=== PATIENT | male | born 1955 | race African-American/Black ===

== ENCOUNTER 2017-02-27 02:54 | Observation (INO) | payer OTHER ==
[2017-02-27 03:29] VITALS: BMI 24.0
--- NOTE | 2017-02-27 03:30 | PDOC ---
History of Present Illness - General History Source: Patient Exam Limitations: No Limitations - History of Present Illness Initial Comments: 02/27/17 03:52 The patient is a 61 year old male, with a significant past medical history of HTN, DM, HLD, BPH, who presents to the emergency department with, R sided neck pain and chest pain today. Patient states his neck pain, 7/10 in severity began 3 days ago, stabbing and pressure like in nature and radiates to his shoulder. The patient describes his chest pain as pressure like, 7/10 in severity associated with SOB. Patient states his chest pain woke him up and presents to the ED for further evaluation. Patient denies recent travel, recent sick contacts or illnesses. He denies headache or dizziness. He denies fever, chills, abdominal pain, nausea , vomit, diarrhea or constipation. He denies dysuria, frequency, urgency or hematuria. Allergies:NKA Past surgical history: Cardiac stent placement Social history:Former smoker (quit 4 years ago) PCP: Dr. Wei Simpson <Maryellen Griggs - Last Filed: 02/27/17 06:51> - General History Source: Patient <JustynDillan arredondo - Last Filed: 02/27/17 19:50> - General Chief Complaint: Chest Pain Stated Complaint: LFT SIDE NECK AND FACE PAIN Time Seen by Provider: 02/27/17 03:26 Past History <Maryellen Griggs - Last Filed: 02/27/17 06:51> - Past Medical History Cardiac Disorders: Yes (PALPITATIONS,CAD) CVA: Yes (mini stroke, no residual) Diabetes: Yes (IDDM) HTN: Yes Hypercholesterolemia: Yes - Surgical History Cardiac Surgery: Yes (cardiac cath 2013, NO STENT) - Immunization History Immunization Up to Date: Yes (2011) - Psycho/Social/Smoking Cessation Hx Anxiety: No Suicidal Ideation: No Smoking Status: Yes Smoking History: Current every day smoker Have you smoked in the past 12 months: No Number of Cigarettes Smoked Daily: 0 If you are a former smoker, when did you quit?: 2012 'Breaking Loose' booklet given: 08/13/12 Hx Alcohol Use: No Drug/Substance Use Hx: No Substance Use Type: None Hx Substance Use Treatment: No <Dillan Carmona - Last Filed: 02/27/17 19:50> - Past Medical History Allergies/Adverse Reactions: Allergies Allergy/AdvReac Type Severity Reaction Status Date / Time No Known Allergies Allergy Verified 05/18/15 10:08 Home Medications: Ambulatory Orders Aspirin [ASA -] 81 mg PO DAILY 02/27/17 Insulin Glargine,Hum.rec.anlog [Lantus (nf)] 20 units SQ HS 02/27/17 Lisinopril [Prinivil] 20 mg PO DAILY 02/27/17 Metoprolol Tartrate 25 mg PO DAILY 02/27/17 Sitagliptin Phos/Metformin HCl [Janumet 50-1,000 mg Tablet] 1,000 mg PO BID 09/14 Tamsulosin HCl [Flomax] 0.4 mg PO DAILY 02/27/17 Review of Systems - Review of Systems Able to Perform ROS?: Yes Comments:: 02/27/17 03:52 GENERAL/CONSTITUTIONAL: No fever or chills. No weakness. HEAD, EYES, EARS, NOSE AND THROAT: No change in vision. No ear pain or discharge. No sore throat. CARDIOVASCULAR: + chest pain, shortness of breath. RESPIRATORY: No cough, wheezing, or hemoptysis. GASTROINTESTINAL: No nausea, vomiting, diarrhea or constipation. GENITOURINARY: No dysuria, frequency, or change in urination. MUSCULOSKELETAL: +neck and shoulder pain. No joint or muscle swelling or pain. No back pain. SKIN: No rash NEUROLOGIC: No headache, vertigo, loss of consciousness, or change in strength/ sensation. ENDOCRINE: No increased thirst. No abnormal weight change. HEMATOLOGIC/LYMPHATIC: No anemia, easy bleeding, or history of blood clots. ALLERGIC/IMMUNOLOGIC: No hives or skin allergy. <Maryellen Griggs - Last Filed: 02/27/17 06:51> *Physical Exam - Vital Signs Last Vital Signs Temp Pulse Resp BP Pulse Ox 98.0 F 68 18 137/99 99 02/27/17 03:26 02/27/17 03:26 02/27/17 03:26 02/27/17 03:26 02/27/17 03:26 - Physical Exam Comments: 02/27/17 03:52 GENERAL: Awake, alert, and fully oriented, in + moderate distress. HEAD: No signs of trauma EYES: PERRLA, EOMI, sclera anicteric, conjunctiva clear ENT: Auricles normal inspection, hearing grossly normal, nares patent, oropharynx clear without exudates. Moist mucosa NECK: Normal ROM, supple, no lymphadenopathy, JVD, or masses LUNGS: Breath sounds equal, clear to auscultation bilaterally. No wheezes, and no crackles HEART: Regular rate and rhythm, normal S1 and S2, no murmurs, rubs or gallops ABDOMEN: Soft, nontender, normoactive bowel sounds. No guarding, no rebound. No masses EXTREMITIES: Normal range of motion, no edema. No clubbing or cyanosis. No cords, erythema, or tenderness NEUROLOGICAL: Cranial nerves II through XII grossly intact. Normal speech, normal gait SKIN: Warm, Dry, normal turgor, no rashes or lesions noted. <Maryellen Griggs - Last Filed: 02/27/17 06:51> Heart Score/ECG Review #1 02/27/17 04:[address] Kristine Bonilla. rate 70 bpm NSR Anterior infarct, age undetermined Abdonrmal ECG [place] Interval 182 ms QRS Duration 84 ms QT/QTc 352/380 ms P-R-T axes 57 42 34 <Maryellen Griggs - Last Filed: 02/27/17 06:51> ED Treatment Course - LABORATORY CBC & Chemistry Diagram: 02/27/17 03:37 02/27/17 03:37 <Maryellen Griggs - Last Filed: 02/27/17 06:51> - LABORATORY CBC & Chemistry Diagram: 02/27/17 03:37 02/27/17 03:37 <Dillan Carmona - Last Filed: 02/27/17 19:50> Medical Decision Making - Medical Decision Making 02/27/17 06:[address] Stacy via phone answering service. 02/27/17 06:[address] Stacy via phone answering service 02/27/17 06:[address] Stacy via phone answering service. 02/27/17 06:51 Patient's case was discussed. <Maryellen Griggs - Last Filed: 02/27/17 06:51> - Medical Decision Making 02/27/17 19:50 Dr. Carmona: The scribe's documentation has been prepared under my direction and personally reviewed by me in its entirery. I confirm that the note above accurately reflects all work, treatment, procedures, and medical decision making performed by me. <Dillan Carmona - Last Filed: 02/27/17 19:50> *DC/Admit/Observation/Transfer - Attestations Scribe Attestion: 02/27/17 03:52 Documentation prepared by Maryellen Griggs, acting as medical office assistant for Dillan Carmona DO. <Maryellen Griggs - Last Filed: 02/27/17 06:51> - Discharge Dispostion Admit: Yes <Dillan Carmona - Last Filed: 02/27/17 19:50> Diagnosis at time of Disposition: Coronary artery disease, Chest pain - Referrals
[2017-02-27] MEDS ORDERED: ASPIRIN 81 MG CHEWABLE TABLETS PO ONE (03:38)
[2017-02-27] MEDS ORDERED: morphine CARPU-JECT 2 MG/1 ML DISP.SYRIN IVPUSH ONE (03:38)
[2017-02-27] MEDS ORDERED: NITROGLYCERIN 2% OINTMENT - 1GM PACKET TD ONE ×2 (03:38→03:58)
[2017-02-27] MEDS ORDERED: morphine CARPU-JECT 4 MG/1 ML DISP.SYRIN ONE (03:53)
[2017-02-27] MEDS ORDERED: ASPIRIN 81 MG CHEWABLE TABLETS ONE (03:58)
[2017-02-27 04:03] LABS: MCHC 32.4 g/dl (32.0-35.9); MEAN CELL VOLUME 86.5 fl (80-96); MEAN PLT VOLUME 7.5 fl (7.5-11.1); PLATELET COUNT 211 K/MM3 (134-434); RDW 14.9 % (11.9-15.9); WHITE BLOOD COUNT 5.3 K/mm3 (4.0-10.0)
[2017-02-27 04:14] LABS: INR 1.05 (0.82-1.09); PROTHROMBIN TIME (PATIENT) 11.6 SEC (9.98-11.88)
[2017-02-27 04:24] LABS: ALBUMIN 3.6 g/dl (3.4-5.0); ANION GAP 4 (8-16); BILIRUBIN,TOTAL 0.3 mg/dL (0.2-1.0); CO2 29 mmol/L (21-32); CREATININE 1.1 mg/dL (0.7-1.3); GLUCOSE,RANDOM 136 mg/dL (74-106); SGOT/AST 15 U/L (15-37); SGPT/ALT 32 U/L (12-78); TOT PROT 6.6 g/dl (6.4-8.2)
[2017-02-27 04:28] LABS: ALK PHOS 82 U/L (45-117); CPK 77 IU/L (39-308); TROPONIN I < 0.02 ng/ml (0.00-0.05)
[2017-02-27 05:36] LABS: PLATELET ESTIMATE ADEQUATE (NORMAL)
--- NOTE | 2017-02-27 08:42 | CON.CARD ---
Cardiology Consult (text) - Consultation Consultation Note: Consult Dictated IMP: Probable musculoskeletal neck and chest pain Known CAD w/ PCI 2 years ago DM REC: Cycle enzymes ASA Echo Plan for stress test in AM. Further work up of neck pain per PMD
--- NOTE | 2017-02-27 09:26 | CONS ---
CARDIOLOGY CONSULTATION DATE OF CONSULTATION: 02/27/2017 REQUESTING PHYSICIAN: Kasia Stacy MD REASON FOR CONSULTATION: Chest pain. HISTORY OF PRESENT ILLNESS: The patient is a 61-year-old male with coronary artery disease status post PCI approximately [address] [facility] in the setting of anginal symptoms, diabetes, hypertension, who presents to the emergency room for evaluation of right-sided neck pain, worse with movement of his neck, as well as substernal chest pressure which occurred yesterday. There was no associated nausea, vomiting, or diaphoresis. There was no exertional component. He states that when he pressed on the area of his chest that was hurting, it reproduced the pain. He denies any trauma or recent heavy lifting. He denies palpitations, PND, orthopnea, or symptoms of heart failure. No fevers, chills, or other neurological deficits. PAST MEDICAL HISTORY: As above. He denies history of myocardial infarction. His cost estimating manager is Dr. Hankins. ALLERGIES: None. HOME MEDICATIONS: Include: 1. Flomax 0.4 daily. 2. Janumet 1000 b.i.d. 3. Metoprolol tartrate 25 mg daily. 4. Lisinopril 20 mg daily. 5. Insulin. 6. Baby aspirin. FAMILY HISTORY: Negative for sudden cardiac or early CAD. SOCIAL HISTORY: Nonsmoker, denies smoking. Retired business planning director. PHYSICAL EXAMINATION: General: No distress. Vital Signs: Afebrile, temperature 98; pulse 56 and regular; blood pressure 130/85; O2 saturation 97 on room air. Neck: No bruits. Heart: S1, S2. Regular. Soft systolic murmur, right sternal border. Chest: Clear. Abdomen: Soft, nontender. No bruits. Extremities: No edema. DIAGNOSTIC DATA: EKG: Normal sinus rhythm with questionable septal Q waves c s s representative of possible old septal CA versus lead position. Chest x-ray was normal. CBC was normal. Basic metabolic panel showed sodium 140, potassium 5.1, creatinine 1.1. Normal LFTs. CK and troponin are negative x1 set. Lipase is normal. IMPRESSION: 1. Probable musculoskeletal neck and chest pain. 2. Known coronary disease with prior percutaneous coronary intervention. 3. Insulin-dependent diabetes. RECOMMENDATIONS: 1. Telemetry observation. 2. Cycle cardiac enzymes. 3. Aspirin daily. 4. Echocardiogram for assessment of EF and to evaluate the murmur. 5. Plan for a stress test once cardiac enzymes have trended negatively. 6. Further workup of musculoskeletal neck pain as per PMD. Thank you for the consultation. AMISHA CHILD M.D. [id number]
[2017-02-27 11:23] LABS: CPK 69 IU/L (39-308); TROPONIN I < 0.02 ng/ml (0.00-0.05)
[2017-02-27] MEDS ORDERED: METOPROLOL TARTRATE 25 MG TABLET (FP) PO SCH (12:00)
[2017-02-27] MEDS: LISINOPRIL 20 MG TABLET (FP) PO SCH (13:45)
[2017-02-27] MEDS: ASPIRIN 81 MG CHEWABLE TABLETS PO SCH (13:45)
[2017-02-27] MEDS: TAMSULOSIN HCL 0.4 MG CAP.ER.24H (FP) PO SCH (13:45)
--- NOTE | 2017-02-27 15:14 | EKG ---
Test Reason : Blood Pressure : / mmHG Vent. Rate : 070 BPM Atrial Rate : 070 BPM P-R Int : 182 ms QRS Dur : 084 ms QT Int : 352 ms P-R-T Axes : 057 042 034 degrees QTc Int : 380 ms NORMAL SINUS RHYTHM ANTERIOR INFARCT (CITED ON OR BEFORE 18-MAY-2015) ABNORMAL ECG WHEN COMPARED WITH ECG OF 18-MAY-2015 11:15, NO SIGNIFICANT CHANGE WAS FOUND Confirmed by TERE ALCARAZ MD ([id number]) on 02/27/2017 3:14:11 PM Referred By: Confirmed By:TERE ALCARAZ MD
[2017-02-27 17:10] LABS: CPK 68 IU/L (39-308); TROPONIN I < 0.02 ng/ml (0.00-0.05)
[2017-02-27] MEDS: sitaGLIPtin PHOSPHATE 50 MG TABLET PO SCH (18:32)
[2017-02-27] MEDS: metFORMIN HCL 500 MG TABLET (FP) PO SCH (18:32)
[2017-02-27] MEDS: INSULIN SLIDING SCALE (NOVOLOG) 1 VIAL SQ SCH ×2 (18:32→22:27)
--- NOTE | 2017-02-27 21:31 | HP ---
Admitting History and Physical - Admission History of Present Illness: Pt is a 61 y/o male, with PMH significant for HTN, DM, CAD (s/p stents), HLD, and BPH. Pt presented to the ER bc of chest pain wc radiated to his neck. Patient states his neck pain, 7/10 in severity began 3 days ago, stabbing and pressure like in nature and radiates to his shoulder. The patient describes his chest pain as pressure like, 7/10 in severity associated with SOB. Patient states his chest pain woke him up. History Source: Patient, Medical Record - Past Medical History Cardiovascular: Yes: CAD, HTN, Hyperlipdemia Gastrointestinal: Yes: GERD Renal/: Yes: BPH Endocrine: Yes: Diabetes Mellitus - Past Surgical History Additional Past Surgical History: Cardiac stents - Smoking History Smoking history: Current every day smoker Have you smoked in the past 12 months: No Aproximately how many cigarettes per day: 0 If you are a former smoker, when did you quit?: 2012 - Alcohol/Substance Use Hx Alcohol Use: No Home Medications - Allergies Allergies/Adverse Reactions: Allergies Allergy/AdvReac Type Severity Reaction Status Date / Time No Known Allergies Allergy Verified 05/18/15 10:08 - Home Medications Home Medications: Ambulatory Orders Aspirin [ASA -] 81 mg PO DAILY 02/27/17 Insulin Glargine,Hum.rec.anlog [Lantus (nf)] 20 units SQ HS 02/27/17 Lisinopril [Prinivil] 20 mg PO DAILY 02/27/17 Metoprolol Tartrate 25 mg PO DAILY 02/27/17 Sitagliptin Phos/Metformin HCl [Janumet 50-1,000 mg Tablet] 1,000 mg PO BID 09/14 Tamsulosin HCl [Flomax] 0.4 mg PO DAILY 02/27/17 Family Disease History - Family Disease History Family History: Unremarkable Review of Systems - Review of Systems Constitutional: reports: No Symptoms Eyes: reports: No Symptoms HENT: reports: No Symptoms Neck: reports: No Symptoms Cardiovascular: reports: Chest Pain, Shortness of Breath Respiratory: reports: SOB Gastrointestinal: reports: No Symptoms Physical Examination Vital Signs: Vital Signs Temperature 97.8 F 02/27/17 17:21 Pulse Rate 60 02/27/17 17:21 Respiratory Rate 22 02/27/17 17:21 Blood Pressure 176/98 02/27/17 17:21 O2 Sat by Pulse Oximetry (%) 100 02/27/17 17:39 Constitutional: Yes: No Distress Eyes: Yes: WNL HENT: Yes: WNL Neck: Yes: WNL, Supple Cardiovascular: Yes: WNL, Regular Rate and Rhythm Respiratory: Yes: WNL, Regular, CTA Bilaterally Gastrointestinal: Yes: WNL, Normal Bowel Sounds, Soft Musculoskeletal: Yes: WNL Extremities: Yes: WNL Edema: No Neurological: Yes: WNL, Alert, Oriented ...Motor Strength: WNL Problem List - Problems (1) Chest pain Assessment/Plan: Pt w/ chest pain this am Monitor on tele Due to cardiac risk factors pt for stress test Serial cpk/troponin to r/o ACS As per cardio Code(s): R07.9 - CHEST PAIN, UNSPECIFIED (2) Cervical strain Assessment/Plan: Check MRI C spine Code(s): S16.1XXA - STRAIN OF MUSCLE, FASCIA AND TENDON AT NECK LEVEL, INIT (3) Hypertension Assessment/Plan: Cont metoprolol/asa/lisinopril/ Code(s): I10 - ESSENTIAL (PRIMARY) HYPERTENSION Qualifiers: Hypertension type: essential hypertension Qualified Code(s): I10 - Essential (primary) hypertension (4) Diabetes Assessment/Plan: Cont levemir/januvvia/metformin and sliding scale w/ coverge Code(s): E11.9 - TYPE 2 DIABETES MELLITUS WITHOUT COMPLICATIONS (5) HLD (hyperlipidemia) Code(s): E78.5 - HYPERLIPIDEMIA, UNSPECIFIED
[2017-02-27] MEDS ORDERED: INSULIN DETEMIR 100 UNITS/ML MDV SQ SCH (22:00)
[2017-02-27] MEDS ORDERED: PATIENT'S OWN MEDICATION (NON-FORMULARY) (Sitagliptin Phos/Metformin Hcl [Janumet 50-1,000 PO SCH (22:00)
[2017-02-27 22:11] LABS: URINE APPEARANCE CLEAR; URINE BILIRUBIN NEGATIVE (NEGATIVE); URINE BLOOD NEGATIVE (NEGATIVE); URINE COLOR STRAW; URINE GLUCOSE (UA) 3+ (NEGATIVE); URINE KETONE NEGATIVE (NEGATIVE); URINE LEUK ESTERASE NEGATIVE (NEGATIVE); URINE NITRITE NEGATIVE (NEGATIVE); URINE PROTEIN NEGATIVE (NEGATIVE); URINE UROBILINOGEN NEGATIVE mg/dL (0.2-1.0)
[2017-02-27] MEDS ORDERED: METOPROLOL TARTRATE 25 MG TABLET (FP) PO ONE (22:15)
[2017-02-27] MEDS ORDERED: INSULIN (NOVOLOG) ASPART 100 UNITS/ML 10ML VIAL ONE (22:18)
[2017-02-27] MEDS: HEPARIN NA (PORCINE) 5,000 UNITS/ML 1ML VIAL SQ SCH (22:27)
[2017-02-27] MEDS: METOPROLOL SUCCINATE 25 MG TAB.SR.24H (FP) PO SCH (23:21)
[2017-02-28] MEDS: metFORMIN HCL 500 MG TABLET (FP) PO SCH (07:16)
[2017-02-28] MEDS: sitaGLIPtin PHOSPHATE 50 MG TABLET PO SCH (07:16)
[2017-02-28] MEDS: INSULIN SLIDING SCALE (NOVOLOG) 1 VIAL SQ SCH ×2 (07:20→11:00)
[2017-02-28 07:39] LABS: BASOPHIL 0.4 % (0-2.0); EOSINOPHIL 2.2 % (0-4.5); MCH 28.4 pg (25.7-33.7); MCHC 33.1 g/dl (32.0-35.9); MEAN CELL VOLUME 85.9 fl (80-96); MEAN PLT VOLUME 7.9 fl (7.5-11.1); NEUTROPHILS 46.6 % (42.8-82.8); PLATELET COUNT 201 K/MM3 (134-434); RDW 14.7 % (11.9-15.9); WHITE BLOOD COUNT 5.5 K/mm3 (4.0-10.0)
[2017-02-28 08:37] LABS: ALBUMIN 3.4 g/dl (3.4-5.0); ALK PHOS 79 U/L (45-117); ANION GAP 7 (8-16); BILIRUBIN,TOTAL 0.3 mg/dL (0.2-1.0); CO2 30 mmol/L (21-32); CREATININE 1.1 mg/dL (0.7-1.3); GLUCOSE,RANDOM 109 mg/dL (74-106); SGOT/AST 17 U/L (15-37); SGPT/ALT 36 U/L (12-78); TOT PROT 6.2 g/dl (6.4-8.2)
[2017-02-28] MEDS: HEPARIN NA (PORCINE) 5,000 UNITS/ML 1ML VIAL SQ SCH (09:00)
--- NOTE | 2017-02-28 11:43 | PN ---
Progress Note, Physician History of Present Illness: seen and examined today in nad. awaiting 2nd part of nuclear stress. no new complaints. no overnight events. - Current Medication List Current Medications: Active Medications Aspirin (Asa -) 81 mg PO DAILY [facility] Last Admin: 02/27/17 13:45 Dose: 81 mg Heparin Sodium (Porcine) (Heparin -) 5,000 unit SQ BID [facility] Last Admin: 02/27/17 22:27 Dose: 5,000 unit Insulin Aspart (Novolog Vial Sliding Scale -) 1 vial SQ [facility] Reason: Protocol Last Admin: 02/28/17 07:20 Dose: Not Given Insulin Detemir (Levemir Vial) 20 units SQ HS [facility] Last Admin: 02/27/17 22:28 Dose: 20 units Lisinopril (Prinivil) 20 mg PO DAILY [facility] Last Admin: 02/27/17 13:45 Dose: 20 mg Metformin HCl (Glucophage -) 1,000 mg PO BIDAC [facility] Last Admin: 02/28/17 07:16 Dose: Not Given Metoprolol Succinate (Toprol Xl -) 25 mg PO DAILY [facility] Last Admin: 02/27/17 23:21 Dose: 25 mg Sitagliptin Phosphate (Januvia -) 50 mg PO BIDAC [facility] Last Admin: 02/28/17 07:16 Dose: Not Given Tamsulosin HCl (Flomax -) 0.4 mg PO DAILY@0830 [facility] Last Admin: 02/27/17 13:45 Dose: 0.4 mg - Objective Vital Signs: Vital Signs Temperature 97.9 F 02/28/17 10:00 Pulse Rate 72 02/28/17 10:00 Respiratory Rate 18 02/28/17 10:00 Blood Pressure 151/94 02/28/17 10:00 O2 Sat by Pulse Oximetry (%) 97 02/27/17 21:00 Constitutional: Yes: Well Nourished, No Distress, Calm Eyes: Yes: WNL, Conjunctiva Clear, EOM Intact, PERRL HENT: Yes: WNL, Atraumatic, Normocephalic Neck: Yes: WNL, Supple, Trachea Midline Cardiovascular: Yes: WNL, Regular Rate and Rhythm, S1, S2. No: Bradycardia, Tachycardia, Pulse Irregular, Bruit, JVD, Gallop, Murmur, Rub, S3, S4, Varicosities Respiratory: Yes: WNL, Regular, CTA Bilaterally. No: Rales, Rhonchi, Wheezes Gastrointestinal: Yes: WNL, Normal Bowel Sounds, Soft. No: Distention, Tenderness Musculoskeletal: Yes: WNL Extremities: Yes: WNL Edema: No Peripheral Pulses WNL: Yes Peripheral Pulses: Left Doralis Pedis: 2+, Right Dorsalis Pedis: 2+ Integumentary: Yes: WNL Neurological: Yes: WNL, Alert, Oriented, Cran Nerves II-XII Intact ...Motor Strength: WNL Psychiatric: Yes: WNL, Alert, Oriented Labs: CBC, BMP 02/28/17 05:35 02/28/17 05:35 INR, PTT INR 1.05 (0.82-1.09) 02/27/17 03:37 - ....Imaging Chest X-ray: Report Reviewed, Image Reviewed EKG: Report Reviewed, Image Reviewed Other: Report Reviewed, Image Reviewed (tele-nsr, sinus bradycardia) Assessment/Plan IMP: Chest pain-Probable musculoskeletal neck and chest pain Known CAD w/ PCI 2 years ago DM REC: Cardiac enzymes wnl Cont ASA, Toprol, Lisinopril Clarify why not on statin plan to start as outpatient depending on Lipid results F/up echo report F/up nuclear stress test from today If no sig ischemia seen on stress test and no sig abnl on echo pt would be acceptable from a cardiac standpoint for discharge home with outpatient f/up
[2017-02-28 13:51] VITALS: BP 137/87; PULSE 78; TEMP 98.9
[2017-02-28] MEDS: LISINOPRIL 20 MG TABLET (FP) PO SCH (14:06)
[2017-02-28] MEDS: TAMSULOSIN HCL 0.4 MG CAP.ER.24H (FP) PO SCH (14:06)
[2017-02-28] MEDS: METOPROLOL SUCCINATE 25 MG TAB.SR.24H (FP) PO SCH (14:06)
[2017-02-28] MEDS: ASPIRIN 81 MG CHEWABLE TABLETS PO SCH (14:06)
== END 2017-02-28 17:34 | disposition home or self-care (01) ==
LOC: JER 02:54 → INTOOBSV 06:01 → JERBED 06:01 → UNDOADMOB 06:01 → UNDOADMIN 06:08 → JERBED 06:08 → J4W 09:09 → JERBED 10:25 → UNDOADMOB 10:25 → J4W 10:25 → INTOOBSV 12:02 → OBSVTOIN 12:02 → J4W 12:02
PROVIDERS: ADMIT Internal Medicine; ATTEND Internal Medicine
PROC: 3E033NZ Introduction of Analgesics, Hypnotics, Sedatives into Peripheral Vein, Percutaneous Approach (ICD-10-PCS; principal; 2017-02-27)
PROC: 3E013VG Introduction of Insulin into Subcutaneous Tissue, Percutaneous Approach (ICD-10-PCS; 2017-02-27)
DX: R07.9 Chest pain, unspecified (principal); S16.1XXA Strain of muscle, fascia and tendon at neck level, initial encounter; I10 Essential (primary) hypertension; I25.10 Atherosclerotic heart disease of native coronary artery without angina pectoris; E11.9 Type 2 diabetes mellitus without complications; E78.5 Hyperlipidemia, unspecified; N40.0 Benign prostatic hyperplasia without lower urinary tract symptoms; F17.210 Nicotine dependence, cigarettes, uncomplicated; Z95.5 Presence of coronary angioplasty implant and graft; Z86.73 Personal history of transient ischemic attack (TIA), and cerebral infarction without residual deficits; Z79.4 Long term (current) use of insulin; Z79.82 Long term (current) use of aspirin; Z79.84 Long term (current) use of oral hypoglycemic drugs; X58.XXXA Exposure to other specified factors, initial encounter; Y93.9 Activity, unspecified; Y92.9 Unspecified place or not applicable
CPT/HCPCS: 36415; 71010-TC; 72141-TC; 78452-TC; 80053; 81003; 83690; 83735; 83880; 84484; 85025; 85610; 93005; 93010; 93017; 93306-TC; 99285-25; A9502; G0378; J1644

== ENCOUNTER 2021-01-19 17:24 | Inpatient (IN) | payer OTHER, BC ==
[2021-01-19 19:44] LABS: BASO % 0.5 % (0-2.0); EOS % 0.2 % (0-4.5); HEMATOCRIT 39.7 % (35.4-49); HEMOGLOBIN 13.1 GM/dL (11.7-16.9); LYMPH % 13.4 % (8-40); MCH 28.3 pg (25.7-33.7); MCHC 33.1 g/dl (32.0-35.9); MEAN CELL VOLUME 85.5 fl (80-96); MEAN PLT VOLUME 6.4 fl (7.5-11.1); MONO % 7.6 % (3.8-10.2); NEUT % 78.3 % (42.8-82.8); PLATELET COUNT 487 10^3/uL (134-434); RBC 4.65 M/mm3 (4.00-5.60); RDW 15.8 % (11.9-15.9)
[2021-01-19 20:08] LABS: ALBUMIN 3.6 g/dl (3.4-5.0); CALCIUM 9.5 mg/dL (8.5-10.1)
[2021-01-19 20:13] LABS: BILIRUBIN,TOTAL 0.6 mg/dL (0.2-1); TOT PROT 7.6 g/dl (6.4-8.2)
[2021-01-19 20:58] LABS: EPI CELLS 3 /uL (0-25.1); HYALINE CASTS 17 /uL (0-3.1); URINE APPEARANCE CLOUDY; URINE BACTERIA >9,000 /uL (0-1359); URINE BILIRUBIN NEGATIVE (NEGATIVE); URINE COLOR YELLOW; URINE GLUCOSE (UA) 3+ (NEGATIVE); URINE KETONE 1+ (NEGATIVE); URINE LEUK ESTERASE 1+ (NEGATIVE); URINE NITRITE POSITIVE (NEGATIVE); URINE PROTEIN 2+ (NEGATIVE); URINE RBC 303 /uL (0-23.9); URINE UROBILINOGEN 0.2 mg/dL (0.2-1.0); URINE WBC 590 /uL (0-25.8)
[2021-01-19] MEDS ORDERED: CEFTRIAXONE 1 GM in DEXTROSE 5%-WATER - 50 ML IVPB ONE (21:03)
[2021-01-19] MEDS ORDERED: IBUPROFEN 600 MG TABLET (FP) PO PRN (21:04)
[2021-01-19] MEDS ORDERED: TAMSULOSIN HCL 0.4 MG CAP PO ONE (21:04)
[2021-01-19] MEDS ORDERED: IBUPROFEN 600 MG TABLET (FP) PO ONE (21:08)
[2021-01-19] MEDS ORDERED: CEFTRIAXONE 1 GM/50 ML BAG ONE (21:08)
[2021-01-19] MEDS ORDERED: TAMSULOSIN HCL 0.4 MG CAP ONE (21:08)
[2021-01-19] MEDS ORDERED: METOCLOPRAMIDE HCL INJECTION 10 MG/2 ML VIAL IVPB ONE (21:56)
[2021-01-19] MEDS ORDERED: METOCLOPRAMIDE HCL INJECTION 10 MG/2 ML VIAL ONE (22:07)
[2021-01-20] MEDS: INSULIN SLIDING SCALE (NOVOLOG) 1 VIAL SQ SCH ×4 (06:52→21:56)
[2021-01-20] MEDS ORDERED: cefTRIAXone SODIUM 1 GM VIAL ONE ×2 (13:42→21:54)
[2021-01-20] MEDS ORDERED: DEXTROSE 5%-WATER - 50 ML IVPB ONE ×2 (13:42→21:54)
[2021-01-20] MEDS: CEFTRIAXONE 1 GM in DEXTROSE 5%-WATER - 50 ML IVPB SCH ×2 (13:58→21:55)
[2021-01-20] MEDS: TAMSULOSIN HCL 0.4 MG CAP PO SCH (13:58)
[2021-01-20] MEDS ORDERED: PT OWN MED DRAWER 7, Y5N ONE (14:04)
[2021-01-20 16:30] LABS: BASO % 0.4 % (0-2.0); EOS % 0.5 % (0-4.5); HEMATOCRIT 39.6 % (35.4-49); LYMPH % 18.8 % (8-40); MCH 28.2 pg (25.7-33.7); MCHC 32.8 g/dl (32.0-35.9); MEAN CELL VOLUME 85.9 fl (80-96); MEAN PLT VOLUME 6.9 fl (7.5-11.1); MONO % 6.7 % (3.8-10.2); NEUT % 73.6 % (42.8-82.8); PLATELET COUNT 508 10^3/uL (134-434); RDW 15.8 % (11.9-15.9); WHITE BLOOD COUNT 9.9 K/mm3 (4.0-10.0)
[2021-01-20 16:51] LABS: ALBUMIN 3.2 g/dl (3.4-5.0); CALCIUM 8.4 mg/dL (8.5-10.1)
[2021-01-20 16:54] LABS: CREATININE 0.9 mg/dL (0.55-1.3)
[2021-01-20 16:56] LABS: BILIRUBIN,TOTAL 0.7 mg/dL (0.2-1); TOT PROT 7.2 g/dl (6.4-8.2)
[2021-01-20] MEDS: POLYETHYLENE GLYCOL (HEALTHYLAX) 3350 17 GM PACKET PO PRN (20:42)
[2021-01-20] MEDS ORDERED: ACETAMINOPHEN 1000 MG/100 ML VIAL (NON FORMULARY) IVPB ONE (23:57)
[2021-01-20] MEDS ORDERED: SODIUM PHOSPHATE/NA BIPHOS 133 ML ENEMA PR ONE (23:57)
[2021-01-21] MEDS: INSULIN SLIDING SCALE (NOVOLOG) 1 VIAL SQ SCH ×4 (06:07→21:45)
[2021-01-21] MEDS ORDERED: LISINOPRIL 20 MG TABLET PO ONE (10:50)
[2021-01-21] MEDS ORDERED: DEXTROSE 5%-WATER - 50 ML IVPB ONE (11:00)
[2021-01-21] MEDS ORDERED: cefTRIAXone SODIUM 1 GM VIAL ONE (11:00)
[2021-01-21] MEDS: CEFTRIAXONE 1 GM in DEXTROSE 5%-WATER - 50 ML IVPB SCH ×2 (11:10→11:26)
[2021-01-21] MEDS: POLYETHYLENE GLYCOL (HEALTHYLAX) 3350 17 GM PACKET PO PRN (11:10)
[2021-01-21] MEDS: TAMSULOSIN HCL 0.4 MG CAP PO SCH (11:10)
[2021-01-21 11:52] LABS: BASO % 0.6 % (0-2.0); EOS % 0.4 % (0-4.5); HEMATOCRIT 41.7 % (35.4-49); HEMOGLOBIN 13.6 GM/dL (11.7-16.9); LYMPH % 15.8 % (8-40); MCH 28.3 pg (25.7-33.7); MCHC 32.5 g/dl (32.0-35.9); MEAN CELL VOLUME 86.9 fl (80-96); MEAN PLT VOLUME 7.2 fl (7.5-11.1); MONO % 6.3 % (3.8-10.2); NEUT % 76.9 % (42.8-82.8); PLATELET COUNT 546 10^3/uL (134-434); RBC 4.79 M/mm3 (4.00-5.60); RDW 15.7 % (11.9-15.9); WHITE BLOOD COUNT 11.9 K/mm3 (4.0-10.0)
[2021-01-21] MEDS ORDERED: POLYETHYLENE GLYCOL (HEALTHYLAX) 3350 17 GM PACKET PO SCH (12:00)
[2021-01-21 12:20] LABS: BLOOD UREA NITROGEN 16.8 mg/dL (7-18)
[2021-01-21 12:21] LABS: ALBUMIN 3.1 g/dl (3.4-5.0); CALCIUM 8.7 mg/dL (8.5-10.1)
[2021-01-21 12:25] LABS: CREATININE 0.9 mg/dL (0.55-1.3)
[2021-01-21 12:26] LABS: BILIRUBIN,TOTAL 0.4 mg/dL (0.2-1); TOT PROT 7.1 g/dl (6.4-8.2)
[2021-01-21] MEDS: ERTAPENEM SODIUM 1 GM in SODIUM CHLORIDE 50 ML IVPB SCH (13:12)
[2021-01-21] MEDS ORDERED: ONDANSETRON 4 MG/2 ML VIAL IVPB ONE (13:50)
[2021-01-21] MEDS ORDERED: ONDANSETRON 4 MG TABLET PO ONE (13:52)
[2021-01-21] MEDS ORDERED: chlorproMAZINE HCL 25 MG TABLET PO SCH (14:00)
[2021-01-21] MEDS: chlorproMAZINE HCL 25 MG TABLET PO PRN (15:51)
[2021-01-21] MEDS: ACETAMINOPHEN 325 MG TABLET (FP) PO PRN (18:16)
[2021-01-21] MEDS: ATORVASTATIN CA 20 MG TABLET (FP) PO SCH (21:29)
[2021-01-21] MEDS: MELATONIN 1 MG TABLET PO SCH (21:29)
[2021-01-21] MEDS ORDERED: FAMOTIDINE 20 MG TABLET PO SCH (22:00)
[2021-01-21] MEDS ORDERED: PT OWN MED DRAWER 7, Y5N ONE (22:13)
[2021-01-22] MEDS: INSULIN SLIDING SCALE (NOVOLOG) 1 VIAL SQ SCH ×4 (06:04→21:08)
[2021-01-22] MEDS ORDERED: PT OWN MED DRAWER 7, Y5N ONE ×3 (08:31→20:51)
[2021-01-22] MEDS: chlorproMAZINE HCL 25 MG TABLET PO PRN ×2 (08:32→21:02)
[2021-01-22] MEDS: ERTAPENEM SODIUM 1 GM in SODIUM CHLORIDE 50 ML IVPB SCH (09:57)
[2021-01-22] MEDS: TAMSULOSIN HCL 0.4 MG CAP PO SCH (09:58)
[2021-01-22] MEDS: POLYETHYLENE GLYCOL (HEALTHYLAX) 3350 17 GM PACKET PO SCH (09:58)
[2021-01-22] MEDS: PANTOPRAZOLE SODIUM 40 MG VIAL IVPUSH SCH (09:59)
[2021-01-22] MEDS ORDERED: METOPROLOL TARTRATE 25 MG TABLET (FP) PO SCH (10:00)
[2021-01-22] MEDS: LISINOPRIL 20 MG TABLET PO SCH (10:01)
[2021-01-22] MEDS ORDERED: amLODIPine BESYLATE 5 MG TABLET (FP) PO ONE (14:40)
[2021-01-22 15:55] LABS: HEMATOCRIT 38.7 % (35.4-49); HEMOGLOBIN 12.7 GM/dL (11.7-16.9); MCH 28.2 pg (25.7-33.7); MCHC 32.8 g/dl (32.0-35.9); MEAN CELL VOLUME 86.1 fl (80-96); MEAN PLT VOLUME 6.6 fl (7.5-11.1); PLATELET COUNT 634 10^3/uL (134-434); RBC 4.49 M/mm3 (4.00-5.60); RDW 15.9 % (11.9-15.9); WHITE BLOOD COUNT 6.6 K/mm3 (4.0-10.0)
[2021-01-22 16:15] LABS: CALCIUM 8.5 mg/dL (8.5-10.1)
[2021-01-22 16:16] LABS: BLOOD UREA NITROGEN 12.3 mg/dL (7-18)
[2021-01-22 16:19] LABS: CREATININE 0.9 mg/dL (0.55-1.3)
[2021-01-22 16:20] LABS: BILIRUBIN,TOTAL 0.4 mg/dL (0.2-1); TOT PROT 6.9 g/dl (6.4-8.2)
[2021-01-22] MEDS: ACETAMINOPHEN 325 MG TABLET (FP) PO PRN (19:22)
[2021-01-22] MEDS: ATORVASTATIN CA 20 MG TABLET (FP) PO SCH (21:02)
[2021-01-22] MEDS: MELATONIN 1 MG TABLET PO SCH (21:02)
[2021-01-23] MEDS: chlorproMAZINE HCL 25 MG TABLET PO PRN ×2 (06:17→21:41)
[2021-01-23] MEDS: INSULIN SLIDING SCALE (NOVOLOG) 1 VIAL SQ SCH ×4 (06:37→21:42)
[2021-01-23 08:41] LABS: HEMATOCRIT 39.3 % (35.4-49); HEMOGLOBIN 13.1 GM/dL (11.7-16.9); MCH 28.6 pg (25.7-33.7); MCHC 33.4 g/dl (32.0-35.9); MEAN CELL VOLUME 85.6 fl (80-96); MEAN PLT VOLUME 6.3 fl (7.5-11.1); PLATELET COUNT 694 10^3/uL (134-434); RBC 4.59 M/mm3 (4.00-5.60); RDW 15.4 % (11.9-15.9); WHITE BLOOD COUNT 4.8 K/mm3 (4.0-10.0)
[2021-01-23 08:57] LABS: CALCIUM 8.8 mg/dL (8.5-10.1)
[2021-01-23 08:58] LABS: ALBUMIN 3.3 g/dl (3.4-5.0); BLOOD UREA NITROGEN 12.3 mg/dL (7-18)
[2021-01-23 09:00] LABS: CREATININE 0.9 mg/dL (0.55-1.3)
[2021-01-23 09:01] LABS: BILIRUBIN,TOTAL 0.5 mg/dL (0.2-1)
[2021-01-23 09:02] LABS: TOT PROT 7.2 g/dl (6.4-8.2)
[2021-01-23] MEDS ORDERED: PT OWN MED DRAWER 7, Y5N ONE ×3 (09:46→20:55)
[2021-01-23] MEDS: ERTAPENEM SODIUM 1 GM in SODIUM CHLORIDE 50 ML IVPB SCH (10:52)
[2021-01-23] MEDS: metoPROLOL SUCCINATE 25 MG TAB.SR.24H (FP) PO SCH (10:53)
[2021-01-23] MEDS: POLYETHYLENE GLYCOL (HEALTHYLAX) 3350 17 GM PACKET PO SCH (10:53)
[2021-01-23] MEDS: TAMSULOSIN HCL 0.4 MG CAP PO SCH (10:53)
[2021-01-23] MEDS: LISINOPRIL 20 MG TABLET PO SCH (10:53)
[2021-01-23] MEDS: PANTOPRAZOLE SODIUM 40 MG VIAL IVPUSH SCH (10:54)
[2021-01-23] MEDS: ACETAMINOPHEN 325 MG TABLET (FP) PO PRN ×2 (10:57→21:42)
[2021-01-23] MEDS: MELATONIN 1 MG TABLET PO SCH (21:41)
[2021-01-23] MEDS: ATORVASTATIN CA 20 MG TABLET (FP) PO SCH (21:41)
[2021-01-24] MEDS: INSULIN SLIDING SCALE (NOVOLOG) 1 VIAL SQ SCH ×4 (06:23→21:41)
[2021-01-24] MEDS: TAMSULOSIN HCL 0.4 MG CAP PO SCH (09:21)
[2021-01-24] MEDS: LISINOPRIL 20 MG TABLET PO SCH (09:21)
[2021-01-24] MEDS: PANTOPRAZOLE SODIUM 40 MG VIAL IVPUSH SCH (09:21)
[2021-01-24] MEDS: metoPROLOL SUCCINATE 25 MG TAB.SR.24H (FP) PO SCH (09:22)
[2021-01-24] MEDS: POLYETHYLENE GLYCOL (HEALTHYLAX) 3350 17 GM PACKET PO SCH (09:23)
[2021-01-24] MEDS: ERTAPENEM SODIUM 1 GM in SODIUM CHLORIDE 50 ML IVPB SCH (09:24)
[2021-01-24] MEDS: MELATONIN 1 MG TABLET PO SCH (21:36)
[2021-01-24] MEDS: ATORVASTATIN CA 20 MG TABLET (FP) PO SCH (21:36)
[2021-01-25] MEDS: chlorproMAZINE HCL 25 MG TABLET PO PRN ×2 (00:05→20:39)
[2021-01-25] MEDS: INSULIN SLIDING SCALE (NOVOLOG) 1 VIAL SQ SCH ×4 (06:08→21:15)
[2021-01-25] MEDS: TAMSULOSIN HCL 0.4 MG CAP PO SCH (11:11)
[2021-01-25] MEDS: metoPROLOL SUCCINATE 25 MG TAB.SR.24H (FP) PO SCH (11:11)
[2021-01-25] MEDS: LISINOPRIL 20 MG TABLET PO SCH (11:11)
[2021-01-25] MEDS: PANTOPRAZOLE SODIUM 40 MG VIAL IVPUSH SCH (11:11)
[2021-01-25] MEDS: POLYETHYLENE GLYCOL (HEALTHYLAX) 3350 17 GM PACKET PO SCH ×2 (11:12→18:51)
[2021-01-25] MEDS: ERTAPENEM SODIUM 1 GM in SODIUM CHLORIDE 50 ML IVPB SCH (11:12)
[2021-01-25] MEDS ORDERED: PT OWN MED DRAWER 7, Y5N ONE (20:27)
[2021-01-25] MEDS: ATORVASTATIN CA 20 MG TABLET (FP) PO SCH (21:14)
[2021-01-25] MEDS: MELATONIN 1 MG TABLET PO SCH (21:14)
[2021-01-26] MEDS: INSULIN SLIDING SCALE (NOVOLOG) 1 VIAL SQ SCH ×3 (06:36→16:38)
[2021-01-26] MEDS: metoPROLOL SUCCINATE 25 MG TAB.SR.24H (FP) PO SCH (10:50)
[2021-01-26] MEDS: TAMSULOSIN HCL 0.4 MG CAP PO SCH (10:50)
[2021-01-26] MEDS: POLYETHYLENE GLYCOL (HEALTHYLAX) 3350 17 GM PACKET PO SCH (10:50)
[2021-01-26] MEDS: LISINOPRIL 20 MG TABLET PO SCH (10:50)
[2021-01-26 12:21] VITALS: BMI 21.8
[2021-01-26] MEDS ORDERED: PT OWN MED DRAWER 7, Y5N ONE (13:41)
[2021-01-26] MEDS: ERTAPENEM SODIUM 1 GM in SODIUM CHLORIDE 50 ML IVPB SCH (13:51)
[2021-01-26] MEDS: PANTOPRAZOLE SODIUM 40 MG VIAL IVPUSH SCH (13:51)
[2021-01-26 14:30] VITALS: BP 127/94; PULSE 87; TEMP 98.7
== END 2021-01-26 16:32 | disposition home or self-care (01) | DRG 728 ==
LOC: JER 17:24 → JERBED 21:16 → J5S 01-20 02:13
PROVIDERS: ADMIT Hospitalist; ATTEND Family Medicine
PROC: 02HV33Z Insertion of Infusion Device into Superior Vena Cava, Percutaneous Approach (ICD-10-PCS; principal; 2021-01-26)
PROC: B518ZZA Fluoroscopy of Superior Vena Cava, Guidance (ICD-10-PCS; 2021-01-26)
DX: N45.1 Epididymitis (principal); N39.0 Urinary tract infection, site not specified; I25.10 Atherosclerotic heart disease of native coronary artery without angina pectoris; I10 Essential (primary) hypertension; E78.5 Hyperlipidemia, unspecified; K21.9 Gastro-esophageal reflux disease without esophagitis; N40.0 Benign prostatic hyperplasia without lower urinary tract symptoms; E11.9 Type 2 diabetes mellitus without complications; K59.09 Other constipation; R06.6 Hiccough; R53.1 Weakness; R11.10 Vomiting, unspecified; R01.1 Cardiac murmur, unspecified; B96.20 Unspecified Escherichia coli [E. coli] as the cause of diseases classified elsewhere; Z78.9 Other specified health status; Z79.4 Long term (current) use of insulin; Z86.73 Personal history of transient ischemic attack (TIA), and cerebral infarction without residual deficits
CPT/HCPCS: 36415; 36569; 71045-TC-FY; 71046-TC-FY; 74177-TC; 76775-TC; 76856-TC; 76870-TC; 78761-TC; 80053; 80061; 81003; 82271; 82962; 83036; 83721; 84484; 85025; 85027; 87086; 87177; 87186; 87209; 87491; 87591; 93005; 93010; 99285-25; A9512; C9803; J0131; U0003; U0005